=== PATIENT | male | born 2000 | race Two or more races ===

== ENCOUNTER 2022-07-12 18:33 | Emergency (ER) | payer SELFPAY | END 2022-07-12 21:49 | disposition home or self-care (01) | LOC: JD.ED 18:33 | DX: R07.9 Chest pain, unspecified (principal); Z87.891 Personal history of nicotine dependence | CPT/HCPCS: 36415; 71045; 71045-26; 80053; 84484; 85025; 85379; 85610; 85730; 93005; 99285 ==